=== PATIENT | male | born 1945 | race Caucasian/White ===

== ENCOUNTER → 2016-07-09 | Outpatient (CLI) | payer MEDICARE, OTHER ==
--- NOTE | 2016-07-09 16:17 | Diagnostic Imaging Report ---
INDICATION: Lower respiratory infection. PA and lateral chest. FINDINGS: Heart size and pulmonary vascularity are normal. Lungs are clear. There are no effusions or pneumothoraces. IMPRESSION: Negative chest. Dictated by: Dictated on workstation # [id number]
== END ==
LOC: RAD 14:58
PROVIDERS: ATTEND Family Medicine
DX: R05 Cough (principal)
CPT/HCPCS: 71020

== ENCOUNTER → 2017-02-10 | Outpatient (CLI) | payer MEDICARE, OTHER ==
--- NOTE | 2017-02-10 11:52 | Diagnostic Imaging Report ---
PROCEDURE: US abdomen complete. TECHNIQUE: Multiple real-time grayscale images were obtained over the abdomen in various projections. INDICATION: Upper abdominal fullness. FINDINGS: The pancreas is largely obscured. The liver is echogenic with no focal mass seen. The CBD is obscured by bowel gas. Hepatopetal flow in the portal vein is suggested. The liver size is at the upper limits of normal measuring 18 cm craniocaudally. The gallbladder demonstrates no stones or wall thickening. No pericholecystic fluid. Sonographic Baum sign reportedly negative. The aorta and the IVC are largely obscured. The spleen is 12.5 x 4.5 x 5.3 cm, at the upper limits of normal. The right kidney is 10.6 cm in length with 4.1-cm simple cyst exophytic from the anterior cortex suggested. No solid mass. No hydronephrosis. The left kidney is 10.8 cm in length. No fluid collection or ascites is noted. IMPRESSION: The liver and spleen are at the upper limits of normal in size. The liver parenchyma is echogenic which may relate to hepatitis or fatty infiltration. Dictated by: Dictated on workstation # [id number]
== END ==
LOC: RAD 06:56
PROVIDERS: ATTEND Family Medicine
DX: R19.8 Other specified symptoms and signs involving the digestive system and abdomen (principal)
CPT/HCPCS: 76700

== ENCOUNTER 2017-07-14 05:32 | Outpatient (CLI) | payer MEDICARE, OTHER ==
[~2017-07-14] VITALS: Ht 177.8 cm; Wt 90.7 kg
[2017-07-14] MEDS ORDERED: METF10002 PO (12:43)
[2017-07-14] MEDS ORDERED: ATOR20TA66 PO (12:43)
[2017-07-14] MEDS ORDERED: FENO145T37 PO (12:43)
[2017-07-14] MEDS ORDERED: HYDR12.5 PO (12:43)
[2017-07-14] MEDS ORDERED: CITA20TA9 PO (12:43)
[2017-07-14] MEDS ORDERED: LISI-552 PO (12:43)
[2017-07-14] MEDS ORDERED: GLYB2.5T4 PO (12:43)
[2017-07-14] MEDS ORDERED: ASPI-999 PO (12:43)
== END 2017-07-14 13:24 ==
LOC: PREOP 05:32
PROVIDERS: ATTEND Surgery
DX: Z01.818 Encounter for other preprocedural examination (principal); Z12.11 Encounter for screening for malignant neoplasm of colon; R11.0 Nausea; K21.9 Gastro-esophageal reflux disease without esophagitis; Z79.82 Long term (current) use of aspirin; Z79.84 Long term (current) use of oral hypoglycemic drugs

== ENCOUNTER 2017-07-21 06:56 | Day surgery (SDC) | payer MEDICARE, OTHER ==
[~2017-07-21] VITALS: Ht 177.8 cm; Wt 90.7 kg
[~2017-07-21 06:56] MED LIST: ASPI-999 PO; ATOR20TA66 PO; CITA20TA9 PO; FENO145T37 PO; GLYB2.5T4 PO; HYDR12.5 PO; LISI-552 PO; METF10002 PO
[2017-07-21] MEDS ORDERED: NS IV 500 ML 500 ML ONE (06:59)
[2017-07-21] MEDS ORDERED: NS IV 500 ML 500 ML IV PRN (07:21)
[2017-07-21 07:27] VITALS: BP 146/74
[2017-07-21] MEDS ORDERED: HURRICAINE EXT TUBE (BENZOCAINE) XX PRN (07:30)
[2017-07-21] MEDS ORDERED: MIDAZOLAM 2 MG/2 ML (VERSED) VIAL ONE ×4 (07:45→07:46)
[2017-07-21] MEDS ORDERED: HURRICAINE EXT TUBE (BENZOCAINE) ONE (07:46)
[2017-07-21] MEDS ORDERED: fentaNYL INJECTION 100 MCG/2 ML AMP ONE (07:46)
[2017-07-21] MEDS: fentaNYL INJECTION 100 MCG/2 ML AMP IVP PRN ×2 (08:08→08:22)
[2017-07-21] MEDS: MIDAZOLAM 2 MG/2 ML (VERSED) VIAL IVP PRN ×3 (08:10→08:20)
--- NOTE | 2017-07-21 08:36 | Endo Procedure Record ---
Endo Procedure Report Date of Procedure Last Colonoscopy: Yes (UN[facility]RE 2010) July 21, 2017 Surgeon (s) MICHAEL GILBERT MD Post Procedure/Op Diagnosis EGD: Multiple distal gastric erosions Colonoscopy: Vascular ectasia in the rectum A few sigmoid diverticula Procedure Performed EGD with antral biopsy for H. pylori Colonoscopy to cecum Description of Procedure Anesthesia Type: Conscious Sedation Specimen(s) collected/removed antral mucosa for H. pylori Description of the Procedure Indication for the procedures: This gentleman came in for an upper endoscopy to evaluate atypical symptoms of gastroesophageal reflux and screening colonoscopy. During the pre-endoscopy visit, he reported intermittent rectal bleeding and a family history of polyps in his sister. Informed consent was obtained after reviewing the procedures in detail. Description of procedures EGD/antral biopsy: she was placed in left lateral decubitus position and his vital signs were monitored. Conscious sedation was achieved using Versed and fentanyl. The flexible gastroscope was introduced down the esophagus, past the stomach, into the proximal duodenum. Findings Esophagus: Normal Stomach: Multiple distal gastric erosions were found. Biopsy for H. pylori was obtained. Duodenum: Mild changes of duodenitis. He tolerated the procedure well and was turned around in preparation for colonoscopy. Impression: Epigastric pain with very minimal symptoms of heartburn. Gastric erosions. Helicobacter status pending. Colonoscopy: Digital rectal examination was unremarkable. The colonoscope was then introduced in the rectum and advanced all the way up to the cecum. It was then withdrawn slowly and the mucosa examined in a systematic fashion. Findings: 1. 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 It is likely that these malformations contributed to the bleeding. 2. Very few sigmoid diverticula. He tolerated the procedures well and was taken the nursing area in a stable condition. Impression: Screening colonoscopy. No polyps. Intermittent rectal bleeding possibly due to AV malformation. If continues longer, endoscopic argon beam plasma coagulation would be arranged. Copy Copies To 1: ORLANDO HUYNH MD,MICHAEL Ewing MD July 21, 2017 8:36 am
[2017-07-21 08:40] VITALS: BP 124/72
--- NOTE | 2017-07-21 08:41 | History & Physicial ---
History of Present Illness History of Present Illness Reason for visit/HPI to undergo an upper endoscopy regarding symptoms of reflux disease and for screening colonoscopy. Reports intermittent rectal bleeding and a family history of polyps in his sister Date of Admission 07/21/17 Date Seen by Provider: July 21, 2017 Time Seen by Provider: 07:45 I consulted on this patient on 07/21/17 08:37 Attending Physician Michael Gilbert MD Admitting Physician Liam Root MD Consult Allergies and Home Medications Allergies Coded Allergies: Sulfa (Sulfonamide Antibiotics) (Verified Allergy, Mild, N/V, 07/14/17) codeine (Verified Allergy, Mild, N/V, 07/14/17) Home Medications Aspirin 81 Mg Tab.chew, 81 MG PO DAILY, (Reported) Atorvastatin Calcium 20 Mg Tablet, 20 MG PO DAILY, (Reported) Citalopram Hydrobromide 20 Mg Tablet, 20 MG PO DAILY, (Reported) Fenofibrate Nanocrystallized 145 Mg Tablet, 145 MG PO DAILY, (Reported) Glyburide 2.5 Mg Tablet, 2.5 MG PO DAILY, (Reported) Hydrochlorothiazide 12.5 Mg Capsule, 12.5 MG PO DAILY, (Reported) Lisinopril 20 Mg Tablet, 20 MG PO DAILY, (Reported) Metformin HCl 1,000 Mg Tablet, 1,000 MG PO BID, (Reported) Patient Home Medication List Home Medication List Reviewed: Yes Past Msmjxph-Hyhogk-Gkpros Hx Patient Social History Marrital Status: Employed/Student: retired Alcohol Use: Denies Use Recreational Drug Use: No Smoking Status: Former Smoker Former Smoker, Quit: Jul 14, 1982 Recent Foreign Travel: No Contact w/other who traveled: No Recent Hopitalizations: No Immunizations Up To Date Date of Influenza Vaccine: Dec 30, 2016 Seasonal Allergies Seasonal Allergies: Yes Surgeries No Respiratory Yes Sleep Apnea Currently Using CPAP: Yes Cardiovascular Yes High Cholesterol, Hypertension Neurological No Reproductive System Hx Reproductive Disorders: No Sexually Transmitted Disease: No HIV/AIDS: No Gastrointestinal Yes Gastrointestinal Bleed Musculoskeletal No HEENT Loss of Vision: Bilateral Hearing Impairment: Denies Cancer No Psychosocial Behavioral Health Disorders: Depression Blood Transfusions Adverse Reaction to a Blood Tr: No Constitutional: no symptoms reported EENTM: no symptoms reported Respiratory: no symptoms reported Cardiovascular: no symptoms reported Gastrointestinal: see HPI Genitourinary: no symptoms reported Musculoskeletal: no symptoms reported Skin: no symptoms reported Psychiatric/Neurological: No Symptoms Reported Physical Exam Vital Signs Vital Signs - First Documented 07/21/17 07:27 Temp 97.1 Pulse 62 Resp 18 B/P (MAP) 146/74 (98) Pulse Ox 96 O2 Delivery Room Air Capillary Refill : General Appearance: No Apparent Distress Neck: Normal Inspection Respiratory: Lungs Clear Cardiovascular: Regular Rate, Rhythm Gastrointestinal: Non Tender, Soft Rectal: Deferred Extremity: Normal Inspection Neurologic/Psychiatric: Alert, Oriented x3 Skin: Warm/Dry Assessment/Plan Assessment and Plan gentleman with atypical symptoms of gastroesophageal reflux disease. Need for screening colonoscopy. Family history of polyps. Intermittent rectal bleeding. For upper endoscopy and colonoscopy Admission Diagnosis Admission Status: Other (Outpt Proc) MICHAEL GILBERT MD July 21, 2017 8:41 am
--- NOTE | 2017-07-21 08:41 | Conscious Sedation/ASA ---
Conscious Sedation Pre-Proced Time Reviewed: 07:46 ASA Class: 2 Airway Mallampati Classification: ([place] appropriate class) I. II. III, IV Lungs Heart ASA score ASA 1: a normal healthy patient ASA 2: a patient with a mild systemic disease (mid diabetes, controlled hypertension, obesity ASA 3: a patient with a severe systemic disease that limits activity (angina , COPD, prior Myocardial infarction) ASA 4: a patient with an incapacitating disease that is a constant threat to life (CHF, renal failure) ASA 5: a moribund patient not expected to survive 24 hrs. (ruptured aneurysm) ASA 6: a declared brain patient whose organs are being harvested. For emergent operations, add the letter E after the classification Grade 1 Sedation Plan: Discussed options with patient/fam Note The patient is an appropriate candidate to undergo the planned procedure, sedation, and anesthesia. The patient immediately re-assessed prior to indication. MICHAEL GILBERT MD July 21, 2017 8:41 am
--- NOTE | 2017-07-21 08:42 | Discharge Inst-Simple/Standard ---
Discharge Inst-Standard Discharge Medications New, Converted or Re-Newed RX: Other Patient Instructions/Follow Up Plan of Care/Instructions/FU: Please call for Protonix 40 mg daily to his pharmacy 30 day supply with 5 refills. To call me if rectal bleeding continues. Repeat colonoscopy in 5 years Activity as Tolerated: Yes Discharge Diet: No Restrictions MICHAEL GILBERT MD July 21, 2017 8:42 am
[2017-07-21 09:10] VITALS: BP 128/81
[2017-07-21 09:20] VITALS: BP 128/81
== END 2017-07-21 09:20 | disposition home or self-care (01) ==
LOC: ENDO 06:56
PROVIDERS: ATTEND Surgery
DX: Z12.11 Encounter for screening for malignant neoplasm of colon (principal); K25.9 Gastric ulcer, unspecified as acute or chronic, without hemorrhage or perforation; K57.30 Diverticulosis of large intestine without perforation or abscess without bleeding; Z83.71 Family history of colonic polyps; Z87.891 Personal history of nicotine dependence; E78.00 Pure hypercholesterolemia, unspecified; I10 Essential (primary) hypertension; G47.30 Sleep apnea, unspecified; F32.9 Major depressive disorder, single episode, unspecified
CPT/HCPCS: 43239; G0105; 88305

== ENCOUNTER → 2018-07-21 | Outpatient (CLI) | payer MEDICARE, OTHER ==
[~2018-07-21] MED LIST changes: +METF-399 PO; -METF10002 PO
--- NOTE | 2018-07-21 15:43 | Diagnostic Imaging Report ---
PROCEDURE: US carotid duplex, bilateral. TECHNIQUE: Multiple real-time grayscale images were obtained over the carotid arteries in various projections, bilaterally. Additional spectral analysis and color Doppler duplex images were also obtained. INDICATION: Dizziness. FINDINGS: There is calcified plaque in both carotid bifurcations and proximal internal and external carotid arteries. The velocities are normal bilaterally. No velocity elevation or stenosis is seen. Both vertebral arteries show antegrade flow. IMPRESSION: Mild bilateral carotid plaque. There is no evidence of a hemodynamically significant stenosis. Parameters based on the consensus panel Hickman-Scale and Doppler ultrasound criteria published January 2003, Radiology, Volume 229. DOPPLER (peak systolic velocity M/S Right Left CCA .78 .87 ICA Proximal .80 1.04 ICA Mid .88 1.10 ICA Distal 1.45 1.11 RATIO 1.9 1.3 ECA .87 .80 VERT .63 .56 Dictated by: Dictated on workstation # [id number]
== END ==
LOC: RAD 10:50
PROVIDERS: ATTEND Family Medicine
DX: I65.23 Occlusion and stenosis of bilateral carotid arteries (principal)
CPT/HCPCS: 93880

== ENCOUNTER → 2018-11-23 | Outpatient (CLI) | payer MEDICARE, OTHER ==
--- NOTE | 2018-11-23 10:12 | Diagnostic Imaging Report ---
INDICATION: Right hip pain. TIME OF EXAM: 9:36 AM 2 views of the right hip were obtained. FINDINGS: Femoral acetabular alignment is normal. The joint space is fairly well-maintained. The femoral head and neck are intact. No fractures are seen. The right-sided rami are unremarkable. IMPRESSION: No acute bony abnormality is detected. Dictated by: Dictated on workstation # [id number]
== END ==
LOC: RAD 09:26
PROVIDERS: ATTEND Family Medicine
DX: M25.551 Pain in right hip (principal)
CPT/HCPCS: 73502

== ENCOUNTER 2021-11-26 06:11 | Outpatient (CLI) | payer MEDICARE, OTHER ==
[~2021-11-26] VITALS: Ht 175.3 cm; Wt 90.9 kg
[~2021-11-26 06:11] MED LIST changes: +FENO145T26 PO; -FENO145T37 PO; +GLBR2.5T PO; -GLYB2.5T4 PO; -LISI-552 PO; +LISI20TA26 PO
[2021-11-26] MEDS ORDERED: LORA10TA7 PO (16:44)
[2021-11-26] MEDS ORDERED: AMLO5TAB4 PO (16:44)
== END 2021-11-26 16:49 | disposition home or self-care (01) ==
LOC: PREOP 06:11
PROVIDERS: ATTEND Specialist
DX: Z01.818 Encounter for other preprocedural examination (principal)

== ENCOUNTER 2021-11-30 09:28 | Day surgery (SDC) | payer MEDICARE, OTHER ==
[~2021-11-30] VITALS: Ht 175.3 cm; Wt 90.9 kg
[~2021-11-30 09:28] MED LIST changes: +AMLO5TAB4 PO; +LORA10TA7 PO
[2021-11-30] MEDS: TETRACAINE 0.5% OPHTH SOLN 4 ML BTL (SINGLE DOSE ONLY) OU PRN ×4 (09:59→10:17)
[2021-11-30] MEDS ORDERED: TIMOLOL MALEATE 0.5% 5 ML (TIMOPTIC) BTL OU PRN (10:00)
[2021-11-30] MEDS ORDERED: MOXIFLOXACIN OPHTH SOLN 5 MG/ML 0.3 ML SYRINGE OP ONE (10:00)
[2021-11-30] MEDS ORDERED: POVIDONE (BETADINE) OPHTH SOLN 5% 30 ML OP ONE (10:00)
[2021-11-30 10:04] VITALS: BP 158/85
[2021-11-30] MEDS: PHENYLEPHRINE 10% OPHTH (NEO-SYN) 5 ML BTL OU SCH ×3 (10:07→10:17)
[2021-11-30] MEDS: TROPICAMIDE 1% OPH SOLN (MYDRIACYL) 15 ML BTL OP SCH ×3 (10:07→10:17)
--- NOTE | 2021-11-30 10:46 | Ophthalmologist Pre-Op Note ---
Pre-Operative Progress Note H&P Reviewed The H&P was reviewed, patient examined and no changes noted. Date H&P Reviewed: Nov 30, 2021 Time H&P Reviewed: 10:44 Pre-Op Dx Cataract, Right Eye LISSET MARTINEZ MD Nov 30, 2021 10:46
[2021-11-30] MEDS ORDERED: MIDAZOLAM 2 MG/2 ML (VERSED) VIAL ONE (11:01)
--- NOTE | 2021-11-30 11:13 | Ophthalmology Operative Report ---
Cataract removal/placement IOL PREOPERATIVE DIAGNOSIS: Cataract Right Eye POSTOPERATIVE DIAGNOSIS: Cataract Right Eye PROCEDURE: Cataract removal and placement of posterior chamber implant, right eye SURGEON: Arvind Martinez ANESTHESIA: Topical with sedation COMPLICATIONS: None ESTIMATED BLOOD LOSS: Minimal DESCRIPTION OF PROCEDURE: After proper informed consent was obtained, the patient, a 76 male, was taken to the Operating Room and the right eye was anesthetized with tetracaine. The right eye was then prepped and draped in the usual manner. A wire lid speculum was placed. A paracentesis was made at the left hand position. Preservative free lidocaine was injected into the anterior chamber followed by viscoelastic. A clear corneal incision was made in the temporal position. A capsulorrhexis was preformed and the central nuclear and cortical material were removed. The posterior capsule was polished and Xavier [id number] 20.5 IOL was placed into the capsular bag. The residual viscoelastic was aspirated and balanced saline solution was injected into the anterior chamber. Moxifloxacin was injected into the anterior chamber. The wound was checked and found to be water tight. The patient tolerated the procedure well without complications. ARVIND MARTINEZ MD Nov 30, 2021 11:13
[2021-11-30 11:16] VITALS: BP 124/89
--- NOTE | 2021-11-30 14:46 | Anesthesia-General Post-Op ---
MAC Patient Condition Mental Status/LOC: Same as Preop Cardiovascular: Satisfactory Nausea/Vomiting: Absent Respiratory: Satisfactory Pain: Controlled Complications: Absent Post Op Complications Complications None Follow Up Care/Instructions Patient Instructions None needed. Anesthesiology Discharge Order Discharge Order Patient is doing well, no complaints, stable vital signs, no apparent adverse anesthesia problems. No complications reported per nursing. SAMRA IBARRA CRNA Nov 30, 2021 14:46
== END 2021-11-30 11:18 | disposition home or self-care (01) ==
LOC: SDC 09:28
PROVIDERS: ATTEND Specialist
DX: E11.36 Type 2 diabetes mellitus with diabetic cataract (principal); H25.9 Unspecified age-related cataract; Z87.891 Personal history of nicotine dependence; Z79.82 Long term (current) use of aspirin; Z79.84 Long term (current) use of oral hypoglycemic drugs
CPT/HCPCS: 66984; V2632

== ENCOUNTER → 2021-12-14 | Outpatient (CLI) | payer MEDICARE, OTHER | END | disposition home or self-care (01) | LOC: PREOP 05:33 | PROVIDERS: ATTEND Specialist | DX: Z01.818 Encounter for other preprocedural examination (principal) ==

== ENCOUNTER 2021-12-21 08:02 | Day surgery (SDC) | payer MEDICARE, OTHER ==
[~2021-12-21] VITALS: Ht 175.3 cm; Wt 90.9 kg
[2021-12-21] MEDS ORDERED: MIDAZOLAM 2 MG/2 ML (VERSED) VIAL ONE (08:07)
[2021-12-21] MEDS: TETRACAINE 0.5% OPHTH SOLN 4 ML BTL (SINGLE DOSE ONLY) OU PRN ×4 (08:12→08:32)
[2021-12-21] MEDS ORDERED: MOXIFLOXACIN OPHTH SOLN 5 MG/ML 0.3 ML SYRINGE OP ONE (08:15)
[2021-12-21] MEDS ORDERED: POVIDONE (BETADINE) OPHTH SOLN 5% 30 ML OP ONE (08:15)
[2021-12-21] MEDS ORDERED: TIMOLOL MALEATE 0.5% 5 ML (TIMOPTIC) BTL OU PRN (08:15)
[2021-12-21 08:19] VITALS: BP 146/66
[2021-12-21] MEDS: TROPICAMIDE 1% OPH SOLN (MYDRIACYL) 15 ML BTL OP SCH ×3 (08:22→08:32)
[2021-12-21] MEDS: PHENYLEPHRINE 10% OPHTH (NEO-SYN) 5 ML BTL OU SCH ×3 (08:22→08:32)
--- NOTE | 2021-12-21 08:55 | Ophthalmologist Pre-Op Note ---
Pre-Operative Progress Note H&P Reviewed The H&P was reviewed, patient examined and no changes noted. Date H&P Reviewed: Dec 21, 2021 Time H&P Reviewed: 08:55 Pre-Op Dx Cataract, Left Eye LISSET MARTINEZ MD Dec 21, 2021 08:55
[2021-12-21 09:24] VITALS: BP 138/73
--- NOTE | 2021-12-21 13:59 | Anesthesia-General Post-Op ---
MAC Patient Condition Mental Status/LOC: Same as Preop Cardiovascular: Satisfactory Nausea/Vomiting: Absent Respiratory: Satisfactory Pain: Controlled Complications: Absent Post Op Complications Complications None Follow Up Care/Instructions Patient Instructions None needed. Anesthesiology Discharge Order Discharge Order Patient is doing well, no complaints, stable vital signs, no apparent adverse anesthesia problems. No complications reported per nursing. NO VILLAR CRNA Dec 21, 2021 13:59
--- NOTE | 2022-01-03 02:34 | OPERATIVE REPORT ---
DATE OF SERVICE: 12/21/2021 PREOPERATIVE DIAGNOSIS: Combined cataract, left eye. POSTOPERATIVE DIAGNOSIS: Combined cataract, left eye. ANESTHESIA: Topical with IV sedation. COMPLICATIONS: None. DESCRIPTION OF PROCEDURE: After informed consent was obtained, the patient was placed on his chart. He was taken to the operating room and placed in a supine position on the operating table. He received IV sedation by the anesthesia provider. The eye was then prepped and draped in the usual sterile manner. A wire lid speculum was placed. A paracentesis was made at the left hand position. Preservative-free lidocaine was injected into the anterior chamber followed by viscoelastic. A clear corneal incision was then made in the temporal position. A capsulorrhexis was performed and the central nuclear and cortical material were removed. The posterior capsule was polished, and an Xavier AU00T0 20.5 diopter lens was placed into the capsular bag. The residual viscoelastic was aspirated and the balanced salt saline was injected into the anterior chamber. Moxifloxacin was then injected into the anterior chamber. The wounds were checked and found to be watertight. The patient tolerated the procedure well without complication. He was taken to the recovery room in stable condition. Job ID: [id number] DocumentID: [id number] Dictated Date: 01/02/2022 18:09:34 Harness Fitter Date: 01/03/2022 02:34:05 Dictated By: LISSET MARTINEZ MD
== END 2021-12-21 09:25 | disposition home or self-care (01) ==
LOC: SDC 08:02
PROVIDERS: ATTEND Specialist
DX: E11.36 Type 2 diabetes mellitus with diabetic cataract (principal); H25.812 Combined forms of age-related cataract, left eye; Z87.891 Personal history of nicotine dependence; Z79.84 Long term (current) use of oral hypoglycemic drugs; Z79.82 Long term (current) use of aspirin
CPT/HCPCS: 66984; V2632

== ENCOUNTER 2022-08-21 06:30 | Outpatient (CLI) | payer MEDICARE, OTHER ==
[~2022-08-21] VITALS: Ht 177.8 cm; Wt 87.3 kg
[2022-08-23] MEDS ORDERED: MONT-40 PO (12:48)
[2022-08-23] MEDS ORDERED: HYDR12.56 PO (12:48)
[2022-08-23] MEDS ORDERED: LISI20TA26 PO (12:48)
== END 2022-08-23 12:52 | disposition home or self-care (01) ==
LOC: PREOP 06:30
PROVIDERS: ATTEND Internal Medicine
DX: Z01.818 Encounter for other preprocedural examination (principal)

== ENCOUNTER 2022-08-30 07:57 | Day surgery (SDC) | payer MEDICARE, OTHER ==
--- NOTE | 2022-08-19 09:16 | HISTORY AND PHYSICAL ---
COLONOSCOPY HISTORY AND PHYSICAL HISTORY OF PRESENT ILLNESS: The patient is a 77-year-old white male referred by Dr. Root for screening colonoscopy. He has distant past history of colon polyps. It has been 10 years since his last colonoscopy. He denies bright red blood per rectum, melena, abdominal pain or change in weight. PAST MEDICAL HISTORY: Significant for hypertension, hyperlipidemia, reportedly well controlled diabetes, with no known history for vascular disease. PAST SURGICAL HISTORY: He had right biceps distal tear repair a number of years ago. Reports no other surgery. FAMILY HISTORY: Father of complications of coronary artery disease at age 75. Mother at the age of 84 of hypertension and congestive heart failure, multiple family members have undergone cholecystectomy, but he has not had this issue. SOCIAL HISTORY: He reports no past smoking or significant alcohol consumption. He is retired. PHYSICAL EXAMINATION: GENERAL: Reveals a white male who appeared to be in no acute distress. HEENT: Unremarkable. VITAL SIGNS: Blood pressure 150/80, weight 192. CHEST: Clear to auscultation. CARDIOVASCULAR: Reveals regular rate and rhythm without murmur, S3, or S4. ABDOMEN: Soft, supple without mass, organomegaly, or tenderness. EXTREMITIES: Revealed no cyanosis, clubbing or edema. ASSESSMENT AND PLAN: 1. The patient is being set up for screening colonoscopy deemed to be of average risk. If unremarkable, would not likely recommend future screening considering age and medical comorbidity, although he is very active and despite all his medical issues, appears little younger than as stated age. 2. Not mentioned above, the patient did have a fall at home off the fourth run of the ladder onto his left shoulder on the of this month. He thought that he could move the arm a little bit, although it cause pain right after the fall. He denies any pain with nonmovement, but has been unable to abduct his left arm. He had a little bit of bruising over the shoulder. There was no evidence for any pain on stresses to the humerus with inability to abduct the arm. We did discuss potential for complete rotator cuff tear and that he was not regaining any movement to return to see Dr. Brewer to inquire about orthopedic referral. There was no evidence on physical examination to suggest fracture of the humerus, so I did not recommend plain x-ray evaluation at this time. Job ID: [id number] DocumentID: [id number] Dictated Date: 08/14/2022 17:45:56 All Source Analyst Date: 08/14/2022 18:04:00 Dictated By: RICHARDSON PENNINGTON MD MTDD
[~2022-08-30] VITALS: Ht 177.8 cm; Wt 87.3 kg
[~2022-08-30 07:57] MED LIST changes: +HYDR12.56 PO; +MONT-40 PO
[2022-08-30] MEDS ORDERED: LACTATED RINGERS 1,000 ML IV STA (08:01)
[2022-08-30 08:26] VITALS: BP 154/82
--- NOTE | 2022-08-30 08:29 | Pre-Op Note & Conscious Sedat ---
Pre-Operative Progress Note Date H&P Reviewed: Aug 30, 2022 Time H&P Reviewed: 08:29 History & Physical: H&P Reviewed, Patient Examed, No changes noted Pre-Op Diagnosis: screening Moderate Sedation PreProcedure ASA Score 2 Airway Lungs Heart ASA score ASA 1: a normal healthy patient ASA 2: a patient with a mild systemic disease (mid diabetes, controlled hypertension, obesity ASA 3: a patient with a severe systemic disease that limits activity (angina, COPD, prior Myocardial infarction) ASA 4: a patient with an incapacitating disease that is a constant threat to life (CHF, renal failure) ASA 5: a moribund patient not expected to survive 24 hrs. (ruptured aneurysm) ASA 6: a declared brain- patient whose organs are being harvested. For emergent operations, add the letter E after the classification Mallampati Classification Grade 2 Sedation Plan Analgesia, Amnesia, Plan communicated to team members, Discussed options with patient/fam, Discussed risks with patient/fam The patient is an appropriate candidate to undergo the planned procedure, sedation, and anesthesia. The patient immediately re-assessed prior to indication. RICHARDSON PENNINGTON MD Aug 30, 2022 08:29
[2022-08-30] MEDS ORDERED: PROPOFOL INJECTION 50 ML IV ONE (08:56)
[2022-08-30 09:25] VITALS: BP 109/55
--- NOTE | 2022-08-30 09:26 | Progress Note-Post Operative ---
Post-Procedure Note Physician (s)/Merchandising Consultant (s) Physician RICHARDSON PENNINGTON MD Pre-Procedure Diagnosis Pre-Procedure Diagnosis: screening Post-Procedure Diagnosis Post-operative diagnosis: Prior to undergoing colonoscopy digital rectal evaluation was performed. Anal suture tone was normal and the perianal reflexes intact. Prostate was unremarkable digital inspection as was the anal canal and distal rectal vault. The colonoscope was inserted into the rectum and under direct visitation advanced the cecum. The cecum was identified by identification of the ileocecal valve and the cecal strap. Photographic documentation was obtained. Careful suction was made as the colonoscope was withdrawn. Quality the prep was good. Findings there are no evidence for internal or external hemorrhoids and the rectum was unremarkable. Mild to moderate diverticular disease was confined to the sigmoid colon without evidence for diverticulitis. 1 3 mm sessile mid sigmoid colonic polyp was noted it was photographed and biopsied and ablated with no significant blood loss. The remainder the sigmoid colon and descending colon was unremarkable. an 8 mm sessile polyp was noted at the splenic flexure was photographed then biopsied and ablated with no blood loss. The transverse colon hepatic flexure ascending colon and cecum were unremarkable. Assessment: 2 polyps were removed today 3 mm sessile polyp from the mid sigmoid colon and an 8 mm sessile polyp from the splenic flexure Via hot forceps. Mild diverticular disease confined to the sigmoid colon was present with no other abnormalities being noted on today's procedure including digital rectal evaluation the prostate. As long as there are no surprises on histopathology considering patient age would not advocate future screening colonoscopy. Sincerely, Richardson Pennington MD. CC: Dr. Liam Root MD. RICHARDSON PENNINGTON MD Aug 30, 2022 09:26
[2022-08-30 09:30] VITALS: BP 116/59
[2022-08-30 09:35] VITALS: BP 119/56
[2022-08-30 09:55] VITALS: BP 119/56
--- NOTE | 2022-08-30 11:14 | Anesthesia-General Post-Op ---
MAC Patient Condition Mental Status/LOC: Same as Preop Cardiovascular: Satisfactory Nausea/Vomiting: Absent Respiratory: Satisfactory Pain: Controlled Complications: Absent Post Op Complications Complications None Follow Up Care/Instructions Patient Instructions None needed. Anesthesiology Discharge Order Discharge Order Patient is doing well, no complaints, stable vital signs, no apparent adverse anesthesia problems. No complications reported per nursing. LAUREN ALMAGUER CRNA Aug 30, 2022 11:14
== END 2022-08-30 10:26 | disposition home or self-care (01) ==
LOC: ENDO 07:57
PROVIDERS: ATTEND Internal Medicine
DX: Z12.11 Encounter for screening for malignant neoplasm of colon (principal); K63.5 Polyp of colon; K57.30 Diverticulosis of large intestine without perforation or abscess without bleeding; E11.9 Type 2 diabetes mellitus without complications; S40.012A Contusion of left shoulder, initial encounter; W11.XXXA Fall on and from ladder, initial encounter; Y92.009 Unspecified place in unspecified non-institutional (private) residence as the place of occurrence of the external cause; G47.33 Obstructive sleep apnea (adult) (pediatric); Z79.84 Long term (current) use of oral hypoglycemic drugs
CPT/HCPCS: 82947

== ENCOUNTER → 2023-02-14 | Outpatient (CLI) | payer MEDICARE, OTHER ==
[~2023-02-14] VITALS: Ht 175.3 cm; Wt 86.5 kg
== END ==
LOC: PREOP 05:37
PROVIDERS: ATTEND Otolaryngology Otolaryngology/Facial Plastic Surgery
DX: Z01.818 Encounter for other preprocedural examination (principal)